=== PATIENT | male | born 1945 | race Caucasian/White ===

== ENCOUNTER 2021-12-08 08:13 | Day surgery (SDC) | payer MEDICARE ==
[2021-12-05 11:08] LABS: COVID AG,FIA SOURCE NASOPHARYNGEAL
[2021-12-05 11:12] LABS: BASOPHILS % (AUTO) 0.6 % (0.0-2.0); EOSINOPHILS % (AUTO) 1.7 % (1.0-6.0); HEMATOCRIT 37.2 % (41-53); HEMOGLOBIN 13.1 g/dL (13.5-17.5); LYMPHOCYTES # (AUTO) 0.8 K/uL (1.0-4.8); LYMPHOCYTES % (AUTO) 15.4 % (22.0-44.0); MEAN CORPUSCULAR HEMOGLOBIN 35.9 pg (26.0-34.0); MEAN CORPUSCULAR HGB CONC 35.3 G/dL (31.0-37.0); MEAN CORPUSCULAR VOLUME 102 fL (80-100); MONOCYTES # (AUTO) 0.6 K/uL (0.1-1.0); MONOCYTES % (AUTO) 11.2 % (2.0-9.0); NEUTROPHILS # (AUTO) 3.5 K/uL (1.8-7.7); NEUTROPHILS % (AUTO) 71.1 % (40.0-70.0); PLATELET COUNT (AUTO) 201 K/uL (150-450); RED BLOOD CELL COUNT(AUTO) 3.66 MIL/uL (4.50-5.90); RED CELL DISTRIBUTION WIDTH 12.9 % (11.5-14.5)
[2021-12-05 11:23] LABS: PROTHROMBIN TIME 10.6 SEC (9.4-11.6)
[2021-12-05 11:25] LABS: ANION GAP 8 mmol/L (8-16); CALCIUM, TOTAL 8.7 mg/dL (8.8-10.5); CARBON DIOXIDE 27 mmol/L (22-29); CHLORIDE 93 mmol/L (98-107); CREATININE 0.95 mg/dL (0.60-1.30); GLUCOSE,RANDOM 108 mg/dL (70-110); POTASSIUM 4.6 mmol/L (3.5-5.1); SODIUM SERUM 128 mmol/L (136-145); UREA NITROGEN, BLOOD 15 mg/dL (7-18)
[2021-12-05 11:26] LABS: GLOMERULAR FILTR. RATE CALC > 60 mL/min (>60)
[~2021-12-08] VITALS: Ht 188 cm; Wt 90.9 kg
[~2021-12-08 08:13] MED LIST: APIX5TAB PO; FINA-27 PO; METO-408 PO; SODIUM CHLORIDE 0.9% 0 ML ONE; SODIUM CHLORIDE 0.9% 1,000 ML IV ONE; TAMS-13 PO
== END 2021-12-08 08:50 | disposition home or self-care (01) ==
LOC: CATHLAB 08:13
PROVIDERS: ATTEND Internal Medicine Cardiovascular Disease
DX: I25.10 Atherosclerotic heart disease of native coronary artery without angina pectoris (principal); I47.2 Ventricular tachycardia; Z53.8 Procedure and treatment not carried out for other reasons; Z79.01 Long term (current) use of anticoagulants; Z79.899 Other long term (current) drug therapy
CPT/HCPCS: 36415; 80048; 85025; 85610; 85730; 87426; 93005; C9803; J7030

== ENCOUNTER 2021-12-12 11:29 | Day surgery (SDC) | payer MEDICARE ==
[~2021-12-12] VITALS: Ht 188 cm; Wt 93.1 kg
[~2021-12-12 11:29] MED LIST changes: -SODIUM CHLORIDE 0.9% 0 ML ONE; -SODIUM CHLORIDE 0.9% 1,000 ML IV ONE
[2021-12-12] MEDS ORDERED: SODIUM CHLORIDE 0.9% 1,000 ML IV ONE (11:30)
[2021-12-12 12:04] LABS: COVID AG,FIA SOURCE NASOPHARYNGEAL
[2021-12-12] MEDS ORDERED: SODIUM CHLORIDE 0.9% 1,000 ML ONE (12:39)
[2021-12-12] MEDS ORDERED: DiphenhydrAMINE HCL 50 MG CAPSULE ONE (13:25)
[2021-12-12] MEDS ORDERED: DIAZEPAM 5 MG TABLET ONE (13:25)
[2021-12-12] MEDS ORDERED: DiphenhydrAMINE HCL 50 MG CAPSULE PO ONE (13:30)
[2021-12-12] MEDS ORDERED: DIAZEPAM 5 MG TABLET PO ONE (13:30)
[2021-12-12] MEDS ORDERED: IOHEXOL 300 MG/ML 150 ML VIAL ONE ×2 (14:12→14:31)
[2021-12-12] MEDS ORDERED: LIDOCAINE/PF 1% 30 ML VIAL ONE (14:12)
[2021-12-12] MEDS ORDERED: IOHEXOL 300 MG/ML 100 ML VIAL ONE (14:12)
[2021-12-12] MEDS ORDERED: SODIUM BICARBONATE 50 MEQ/50 ML VIAL ONE (14:12)
[2021-12-12] MEDS ORDERED: IOHEXOL 300 MG/ML 50 ML VIAL ONE (14:12)
[2021-12-12] MEDS ORDERED: HEPARIN SODIUM 1000 UNITS/NS 1,000 ML ONE (14:13)
[2021-12-12 14:27] VITALS: BP 189/93
[2021-12-12] MEDS ORDERED: VERAPAMIL HCL 2.5 MG/ML 2 ML VIAL ONE (14:36)
[2021-12-12] MEDS ORDERED: FentaNYL CITRATE PF 100 MCG/2 ML VIAL ONE (14:36)
[2021-12-12] MEDS ORDERED: MIDAZOLAM HCL 2 MG/2 ML VIAL ONE (14:36)
[2021-12-12] MEDS ORDERED: ADENOSINE 3 MG/ML 2 ML VIAL ONE (15:12)
[2021-12-12] MEDS ORDERED: MIDAZOLAM HCL 2 MG/2 ML VIAL IVP ONE (15:15)
[2021-12-12] MEDS ORDERED: NITROGLYCERIN/D5W 50 MG/250 ML IV BOTTLE IARTER ONE ×2 (15:15)
[2021-12-12] MEDS ORDERED: VERAPAMIL HCL 2.5 MG/ML 2 ML VIAL IARTER ONE ×2 (15:15)
[2021-12-12] MEDS ORDERED: IOHEXOL 300 MG/ML 150 ML VIAL IARTER ONE (15:15)
[2021-12-12] MEDS ORDERED: LIDOCAINE 1% 30 ML/SOD BICARB 8.4% 4 ML SQ ONE (15:15)
[2021-12-12] MEDS ORDERED: HEPARIN SODIUM,PORCINE 1,000 UNITS/ML 10 ML VIAL IARTER ONE (15:15)
[2021-12-12] MEDS ORDERED: FentaNYL CITRATE PF 100 MCG/2 ML VIAL IVP ONE (15:15)
[2021-12-12] MEDS ORDERED: HEPARIN SODIUM 1000 UNITS/NS 1,000 ML IARTER ONE (15:15)
[2021-12-12] MEDS ORDERED: HEPARIN SODIUM,PORCINE 5,000 UNITS/ML VIAL IVP ONE (15:15)
[2021-12-12 15:44] VITALS: BP 190/91
[2021-12-12] MEDS ORDERED: ACETAMINOPHEN 325 MG TABLET PO PRN (15:45)
[2021-12-12] MEDS ORDERED: SODIUM CHLORIDE 0.9% 500 ML IV ONE (15:45)
== END 2021-12-12 16:30 | disposition home or self-care (01) ==
LOC: CATHLAB 11:29
PROVIDERS: ATTEND Internal Medicine Cardiovascular Disease
DX: R94.39 Abnormal result of other cardiovascular function study (principal); I25.10 Atherosclerotic heart disease of native coronary artery without angina pectoris; J44.9 Chronic obstructive pulmonary disease, unspecified; G47.33 Obstructive sleep apnea (adult) (pediatric); I10 Essential (primary) hypertension; Z79.899 Other long term (current) drug therapy; Z98.890 Other specified postprocedural states; I48.92 Unspecified atrial flutter; I48.3 Typical atrial flutter
CPT/HCPCS: 87426; 93458; 93571; 99152; 99153; C1757; C1887; C9803; J0153; J1644; J2250; J3010; J3490 ×3; J7030; Q9967; 0501T; Z7610